=== PATIENT | male | born 1990 | race Caucasian/White ===

== ENCOUNTER 2016-06-15 07:06 | Day surgery (SDC) | payer BC ==
[2016-06-15] VITALS (9 sets, daily range): BP systolic 113–135; BP diastolic 56–88; PULSE 71–112; TEMP 98.2–98.4
[~2016-06-15] VITALS: Ht 185.4 cm; Wt 88.5 kg
[2016-06-15] MEDS ORDERED: IBU600 MG PO (08:41)
[2016-06-15] MEDS ORDERED: NORCO 325 MG-51 TAB PO (14:41)
== END 2016-06-15 17:50 | disposition home or self-care (01) ==
LOC: SDCO 07:06
DX: K40.90 Unilateral inguinal hernia, without obstruction or gangrene, not specified as recurrent (principal)
CPT/HCPCS: A4315; C1781; E0710; J0330; J0690; J1100; J1170; J1885; J2405; J2704; J2710; J3010; J7120